=== PATIENT | male | born 1965 | race Caucasian/White ===

== ENCOUNTER 2019-06-29 08:52 | Emergency (ER) | payer OTHER ==
[~2019-06-29] VITALS: Ht 180.3 cm; Wt 177.4 kg
[~2019-06-29 08:52] MED LIST: COLACE100 MG PO; GABAPENTIN300 MG PO; METOPROLOL TAR100 MG PO; eliquis PO
--- OUTSIDE RECORDS SUMMARY | 2019-06-29 08:54 | XMS REPORT ---
Author Author [facility] Address Unknown Phone Unavailable Care Team Providers Care Lightning Rod Erector Name Role Phone Unavailable Unavailable Problems This patient has no known problems. Allergies, Adverse Reactions, Alerts This patient has no known allergies or adverse reactions. Medications This patient has no known medications.
--- OUTSIDE RECORDS SUMMARY | 2019-06-29 08:55 | XMS REPORT | Summary of Care ---
Author Author [facility] - Health Organization [facility] - Health Address Unknown Phone Unavailable Care Team Providers Care Application Integration Architect Name Role Phone [facility] PCP Asher Lombardi MD Unavailable Encounter Details Care Team Description Date Type Department Doctor Unassigned, [place] [address] [place] [id number] 06/24/2019 Orders Only [facility] [address] [place] [address] Allergies No Known Allergiesdocumented as of this encounter (statuses as of 06/28/2019) Medications End Date Status Medication Sig Dispensed Refills Start Date Active ACETAMINOPHEN ORAL Take 650 mg 0 by mouth as needed. Active hydrochlorothiazide Take 25 mg by 0 (ESIDRIX) 25 mg tablet mouth daily. Active nicotine (NICODERM) 21 Apply 1 Patch 0 mg/24 hr patch to area(s) every 24 (twenty-four) hours. Active ELIQUIS 5 mg tablet 0 5 Active furosemide (LASIX) 40 mg 2 tablet 5 Active lisinopril 5 mg tablet TK 1 T PO D 2 7 Active gabapentin 600 mg tablet TK 1 T PO 2 TID 7 Active simvastatin 5 mg tablet TK 1 T PO QPM 2 7 Active aspirin E.C. 325 mg EC TK 1 T PO QD 2 tablet 7 Active glipiZIDE 5 mg tablet TK 1 T PO BID 2 7 Active LANTUS SOLOSTAR 100 U 10 UNITS SQ 2 unit/mL (3 mL) injection QHS 7 Active MICRO THIN LANCETS 33 U BID 0 gauge Misc 7 Active metoprolol tartrate 100 TK 1 T PO 2 mg tablet BID 7 Active BD INSULIN PEN NEEDLE UF UTD 1 31 gauge x 5/16" Ndle 7 Active TRUE METRIX GLUCOSE TEST U BID 0 STRIP strip 7 Active TRUE METRIX GLUCOSE METER U UTD BID 0 Misc 7 Active pregabalin (LYRICA) 50 mg Take 50 mg by 0 capsule mouth 3 (three) times daily. Active fluticasone propionate 50 Use 1 [place] 16 g 5 mcg/actuation nasal in each 9 sprayIndications: nostril at Post-nasal drainage bedtime. 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 Morbid obesity CHF (congestive heart failure) History of tobacco use Overview: Quit 2007 Essential hypertension, benign DDD (degenerative disc disease), lumbar Lumbar radiculopathy Overview: R leg Status post emergency tracheotomy for assistance in breathing documented as of this encounter (statuses as of 06/28/2019) Social History Date Tobacco Use Types Packs/Day Years Used Quit: 12/11/2007 Former Smoker Cigarettes 2 15 Smokeless Tobacco: Never Used Comments: Started at 1ppd increased to 3ppd over 25 yrs Drinks/Week oz/Week Comments Alcohol Use Very little Yes Sex Assigned at Date Recorded Not on file Industry Job Start Date Occupation Not on file Not on file Not on file Travel End Travel History Travel Start No recent travel history available. documented as of this encounter Last Filed Vital Signs Not on filedocumented in this encounter Plan of Treatment Care Team Description Date Type Specialty Karolyn Sow MD [address] [place] [address] [phone] 12/30/2019 Office Visit Otolaryngology Health Maintenance Due Date Last Done Comments PNEUMOCOCCAL 0-64 YEARS 02/15/1972 COMBINED SERIES (1 of 1 - PPSV23) DTaP,Tdap,and Td Vaccines 1985 (1 - Tdap) COLONOSCOPY 02/15/2016 Zoster Recombinant 02/15/2016 Vaccine (SHINGRIX) (1 of 2) INFLUENZA VACCINE 07/17/2019 documented as of this encounter Procedures Comments Procedure Name Priority Date/Time Associated Diagnosis DME/SUPPLY JUSTIFICATION Routine 06/24/2019 12:01 AM CDT documented in this encounter Results Not on filedocumented in this encounter Insurance Type Payer Benefit Subscriber ID Effective Phone Address Plan / Dates Group Medicaid [facility] [place] xxxxxxxxx 2013-P [address] MANAGED MED[place] HEALTHCARE resent [id number] MEDICAID [place], [place] documented as of this encounter Advance Directives Patient Claims Supervisor Explanation Type Date Recorded Advance Directives 11/23/2018 10:22 AM and Living Will Power of Cycle Manager 11/23/2018 10:22 AM
--- OUTSIDE RECORDS SUMMARY | 2019-06-29 08:55 | XMS REPORT | Summary of Care ---
Author Author [facility] - Health Organization [facility] - Health Address Unknown Phone Unavailable Care Team Providers Care Sheet Metal Operator Name Role Phone [facility] PCP Asher Lombardi MD Unavailable Reason for Visit * Reason Comments Follow-up Renew Trach supplies Encounter Details Care Team Description Date Type Department Karolyn Sow MD [address] [place], [place] [id number] DIANN (obstructive sleep apnea) (Primary Dx); Obesity, unspecified obesity severity, unspecified obesity type; Tracheostomy care; Smoking history; Post-nasal drainage 06/24/2019 Office Visit [facility] [address], [address] [place] [phone] Allergies No Known Allergiesdocumented as of this encounter (statuses as of 06/24/2019) Medications End Date Status Medication Sig Dispensed [...] daily. Active fluticasone propionate 50 Use 1 [place] 16 g 5 mcg/actuation nasal in each 9 sprayIndications: nostril at Post-nasal drainage bedtime. 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 Morbid obesity CHF (congestive heart failure) History of tobacco use Overview: Quit 2007 Essential hypertension, benign DDD (degenerative disc disease), lumbar Lumbar radiculopathy Overview: R leg Status post emergency tracheotomy for assistance in breathing documented as of this encounter (statuses as of 06/24/2019) Social History Date Tobacco Use Types Packs/Day [...] of this encounter Last Filed Vital Signs Reading Time Taken Comments Vital Sign 151/92 06/24/2019 8:56 AM CDT Blood Pressure 88 06/24/2019 8:56 AM CDT Pulse 37.1 C (98.7 F) 06/24/2019 8:56 AM CDT Temperature - - Respiratory Rate 94% 06/24/2019 8:56 AM CDT Oxygen Saturation - - Inhaled Oxygen Concentration 178.7 kg (394 lb) 06/24/2019 8:56 AM CDT Weight 177.8 cm (5' 10") 06/24/2019 8:56 AM CDT Height 56.53 06/24/2019 8:56 AM CDT Body Mass Index documented in this encounter Progress Notes * Thomas Sandhu MD - 06/24/2019 8:30 AM CDT Otolaryngology Clinic Visit Name: Antony Vargas Date: 06/24/2019 09:09 Chief Complaint: Follow-up (Renew Trach supplies) HPI Antony Vargas is a 54 year old male who follows up for tracheotomy/DIANN. He has h ad tracheotomy since 2007 following COPD exacerbation requiring ventilation and does not desire decannulation secondary to severe DIANN. He changes his trach ever y other week with the help of his . Here today requesting refill on trach ca re items. Has a history of smoking but quit years ago. Denies dysphagia, odynoph agia, dyspnea, and dysphonia. Occasionally has sore throat in the morning. Denie s other ENT related concerns/complaints Histories Past Medical History: Diagnosis Date CHF (congestive heart failure) 2007 DDD (degenerative disc disease), lumbar Essential hypertension, benign GERD (gastroesophageal reflux disease) History of tobacco use Quit 2007 - 30 pack history Lumbar radiculopathy R leg Morbid obesity Status post emergency tracheotomy for assistance in breathing 2007 Past Surgical History: Procedure Laterality Date POLYPECTOMY 2010 vocal cord TRACHEOSTOMY 2007 Family History Problem Relation Age of Onset Hypertension Mother Cancer Father lung No Significant Medical Problems Brother No Significant Medical Problems Brother No Significant Medical Problems Brother No Significant Medical Problems Sister Other - see comments Sister obese Diabetes Maternal Grandmother Hypertension Maternal Grandmother Lipids Maternal Grandmother Hypertension Maternal Grandfather Other - see comments Paternal Grandmother unknown hx Heart Paternal Grandfather hx triple bypass Hypertension Paternal Grandfather No Significant Medical Problems Daughter No Significant Medical Problems Son Social History Socioeconomic History Marital status: Spouse name: Not on file Number of children: Not on file Years of education: Not on file Highest education level: Not on file Occupational History 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 Social Needs Financial resource strain: Not on file Food insecurity: Worry: Not on file Inability: Not on file Transportation needs: Medical: Not on file Non-medical: Not on file Tobacco Use Smoking status: Former Smoker Packs/day: 2.00 Years: 15.00 Pack years: 30.00 Types: Cigarettes Last attempt to quit: 12/11/2007 Years since quittin.5 Smokeless tobacco: Never Used Tobacco comment: Started at 1ppd increased to 3ppd over 25 yrs Substance and Sexual Activity Alcohol use: Yes Comment: Very little Drug use: No Comment: as teenager Sexual activity: Yes Partners: Female Lifestyle Physical activity: Days per week: Not on file Minutes per session: Not on file Stress: Not on file Relationships Social connections: Talks on phone: Not on file Gets together: Not on file Attends adventist service: Not on file Active member of club or organization: Not on file Attends meetings of clubs or organizations: Not on file Relationship status: Not on file Intimate partner violence: Fear of current or ex partner: Not on file Emotionally abused: Not on file Physically abused: Not on file Forced sexual activity: Not on file Other Topics Concern Not on file Social History Narrative , lives in [place] with spouse and two children. is currently expec ting third child in September 2011. Allergies No Known Allergies Medications Current Outpatient Medications Medication Sig Dispense Refill pregabalin (LYRICA) 50 mg capsule Take 50 mg by mouth 3 (three) times daily. glipiZIDE 5 mg tablet TK 1 T PO BID 2 LANTUS SOLOSTAR 100 unit/mL (3 mL) injection U 10 UNITS SQ QHS 2 metoprolol tartrate 100 mg tablet TK 1 T PO BID 2 simvastatin 5 mg tablet TK 1 T PO QPM 2 ELIQUIS 5 mg tablet 0 aspirin E.C. 325 mg EC tablet TK 1 T PO QD 2 BD INSULIN PEN NEEDLE UF 31 gauge x 5/16" Ndle UTD 1 gabapentin 600 mg tablet TK 1 T PO TID 2 lisinopril 5 mg tablet TK 1 T PO D 2 MICRO THIN LANCETS 33 gauge Misc U BID 0 TRUE METRIX GLUCOSE METER Misc U UTD BID 0 TRUE METRIX GLUCOSE TEST STRIP strip U BID 0 furosemide (LASIX) 40 mg tablet 2 ACETAMINOPHEN ORAL Take 650 mg by mouth as needed. hydrochlorothiazide (ESIDRIX) 25 mg tablet Take 25 mg by mouth daily. nicotine (NICODERM) 21 mg/24 hr patch Apply 1 Patch to area(s) every 24 (twe nty-four) hours. No current facility-administered medications for this visit. Review of Systems General: No pain, prolonged bleeding, easy bruising or enuresis. Skin: No itchy skin or montero. Head/Face: No facial asymmetry, headache, or head injuries. Eyes: No conjunctival hyperemia or itchy eyes. Ears: No ear discharge, ear pain, loss of balance, dizziness, ear infections, ti nnitus or hearing loss. Nose/Sinuses: No epistaxis, nasal discharge, nasal obstruction, snoring, obligat e mouth breathing or post-nasal drip. Respiratory: No coughing, dyspnea, apnea, recurrent croup, wheezing, cyanosis, s tridor or stertor. Cardiovascular: No murmur, chest pain, or palpitations. Gastrointestinal: No reflux, abdominal pain, vomiting, nausea, diarrhea, belchin g, heart burn, dyspepsia, constipation or regurgitation. Musculoskeletal: No joint pain, joint swelling, or muscle weakness. Neuro/Psych: No loss of facial movement, developmental delays or psychological p roblems. Physical Exam BP (!) 151/92 (BP Location: Left arm, Patient Position: Sitting, BP CUFF SIZE: A dult XL) | Pulse 88 | Temp 37.1 C (98.7 F) (Oral) | Ht 5' 10" (1.778 m) | Wt 394 lb (178.7 kg) | SpO2 94% | BMI 56.53 kg/m PHYSICAL EXAMINATION GENERAL: No acute distress. Speaks with passy blayne valve EYES: EOMI ORAL CAVITY: No mucosal lesions OROPHARYNX: Tonsils 1+, PND LYMPHATIC: No palpable neck lymphadenopathy NECK: [address] with PMV. Trach site clean RESPIRATORY: Breathing unlabored CARDIAC: Extremities warm PSYCH: Appropriate mood/affect SKIN: No lesions on the face/neck NEURO: oriented Procedure Note Fiberoptic laryngoscopy After oral consent was obtained, the patient's nose was topically decongested an d anesthesized using lidocaine/oxymetazoline. The fiberoptic endoscope was inser vianca via the left nasal airway. Findings include: - Nasal airway: normal with no evidence of masses, lesions, or drainage. - Nasopharynx: normal with unobstructed eustachian tube orifices. No masses or lesions are seen. - Oropharynx: normal with no lesions, there is considerable wall collapse - Hypopharynx: normal without masses, lesions, or salivary pooling. - Larynx: grossly normal with good visualization of the vocal cords bilaterally . These have no masses or lesions. Vocal cord mobility is normal bilaterally. rway is grossly normal. Trach tube visualized through glottis The patient tolerated the procedure well without complications. Fiberoptic Tracheobronchoscopy A flexible laryngoscope was passed through the tracheostomy. The distal airway d own to the deann and mainstem bronchi appeared healthy and without granulation tissue, masses, or lesions Assessment/Plan Anotny Vargas is a 54 year old male with h/o DIANN s/p tracheostomy (2007). Changes trach regularly at home. No new concerns ICD-10-CM ICD-9-CM 1. DIANN (obstructive sleep apnea) G47.33 327.23 2. Obesity, unspecified obesity severity, unspecified obesity type E66.9 278.00 3. Tracheostomy care Z43.0 V55.0 4. Smoking history Z87.891 V15.82 - FOL and tracheostomy performed in clinic; see above - DME for trach supplies provided 6-0 CFS shiley with inner cannulas x 24 New rito/trach collar x 364 Drain Sponges for trach Passey blayne valve x2 - Flonase at night for PND - RTC 1 year Gm Sandhu MD [facility] documented in this encounter Plan of Treatment Care Team Description Date Type Specialty Karolyn Sow MD [address] [place] [address] [phone] 12/30/2019 Office Visit Otolaryngology Health Maintenance Due Date Last Done Comments PNEUMOCOCCAL 0-64 YEARS 02/15/1972 COMBINED SERIES (1 of 1 - PPSV23) DTaP,Tdap,and Td Vaccines 1985 (1 - Tdap) COLONOSCOPY 02/15/2016 Zoster Recombinant 02/15/2016 Vaccine (SHINGRIX) (1 of 2) INFLUENZA VACCINE 07/17/2019 documented as of this encounter Procedures Comments Procedure Name Priority Date/Time Associated Diagnosis FLEXIBLE SCOPE ENT Routine 06/24/2019 Tracheostomy care documented in this encounter Results * FLEXIBLE SCOPE ENT (06/24/2019) Specimen Narrative Performed At See clinic note from today for findings SANDER Sandhu MD [facility] Performing Organization Address [facility]State[facility] Phone [facility] [place] documented in this encounter Visit Diagnoses Diagnosis DIANN (obstructive sleep apnea) - Primary Obstructive sleep apnea (adult) (pediatric) Obesity, unspecified obesity severity, unspecified obesity type Tracheostomy care Attention to tracheostomy Smoking history Personal history of tobacco use, presenting hazards to health Post-nasal drainage Unspecified sinusitis (chronic) documented in this encounter Insurance Type Payer Benefit Subscriber ID Effective Phone Address Plan / Dates Group Medicaid [facility] [facility] xxxxxxxxx 2013-P [address] MANAGED MEDICAID HEALTHCARE resent [id number] MEDICAID [place], [place] documented as of this encounter Advance Directives Patient Bdr Explanation Type Date Recorded Advance Directives 11/23/2018 10:22 AM and Living Will Power of Parking Inspector 11/23/2018 10:22 AM
--- OUTSIDE RECORDS SUMMARY | 2019-06-29 08:55 | XMS REPORT | Summary of Care ---
Author Author [facility] - Health Organization [facility] - Health Address Unknown Phone Unavailable Care Team Providers Care Bone Drier Name Role Phone [facility] PCP Asher Lombardi MD Unavailable Reason for Visit * Reason Comments Follow-up Renew Trach supplies Encounter Details Care Team Description Date Type Department Karolyn Sow MD [address] [place], [place] [id number] DIANN (obstructive sleep apnea) (Primary Dx); Obesity, unspecified obesity severity, unspecified obesity type; Tracheostomy care; Smoking history; Post-nasal drainage 06/24/2019 Office Visit [facility] [address], [address] [place] [phone] Allergies No Known Allergiesdocumented as of this [...] daily. Active fluticasone propionate 50 Use 1 [place] 16 g 5 mcg/actuation nasal in each 9 sprayIndications: nostril at Post-nasal drainage bedtime. 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 is currently [...] without granulation tissue, masses, or lesions Assessment/Plan Antony Vargas is a 54 year old [...] Description Date Type Specialty Karolyn Sow MD [address] [place] [address] [phone] 12/30/2019 Office Visit Otolaryngology Health Maintenance Due [...] SANDER Sandhu MD [facility] Performing Organization Address City/State/[facility] Phone Number [place] documented in this encounter [...] Address Plan / Dates Group Medicaid [facility] [facility] xxxxxxxxx 2013-P [address] MANAGED MEDICAID HEALTHCARE resent [id number] MED[place], [place] documented as of this encounter Advance Directives Patient Trailer Technician Explanation Type Date Recorded Advance Directives 11/23/2018 10:22 AM and Living Will Power of Environmental Field Professional 11/23/2018 10:22 AM
[2019-06-29] MEDS ORDERED: CLONIDINE HCL 0.2 MG TAB PO ONE (09:15)
[2019-06-29] MEDS ORDERED: CEPHALEXIN 500 MG CAP PO ONE (09:20)
[2019-06-29] MEDS ORDERED: KEFLEX500 MG PO (09:50)
--- NOTE | 2019-06-29 09:50 | Diagnostic Imaging Report ---
EXAMINATION: FOOT RIGHT AP LAT INDICATION: Trauma COMPARISON: None FINDINGS: AP and lateral images of the right foot demonstrate a minimally displaced fracture of the great toe proximal phalanx with intra-articular extension to the interphalangeal joint. There is soft tissue swelling of the great toe. No other fractures. Prominent plantar calcaneal spur. IMPRESSION: Minimally displaced great toe proximal phalanx fracture with intra-articular extension to the interphalangeal joint. Signed by: George Palencia MD on 06/29/2019 9:47 AM
[2019-06-29] MEDS ORDERED: BACITRACIN ZINC 0.9GM TP ONE (10:00)
== END 2019-06-29 10:24 | disposition home or self-care (01) ==
LOC: ER 08:52
DX: S92.411A Displaced fracture of proximal phalanx of right great toe, initial encounter for closed fracture (principal); W22.09XA Striking against other stationary object, initial encounter; Y92.29 Other specified public building as the place of occurrence of the external cause; E11.9 Type 2 diabetes mellitus without complications; R03.0 Elevated blood-pressure reading, without diagnosis of hypertension; J44.9 Chronic obstructive pulmonary disease, unspecified; I50.9 Heart failure, unspecified; E78.5 Hyperlipidemia, unspecified
CPT/HCPCS: 99284